=== PATIENT | female | born 1990 | race Caucasian/White ===

== ENCOUNTER → 2016-04-02 | Outpatient (CLI) | payer OTHER ==
[~2016-04-02] MED LIST: ANUS2.5C2 TOP; COLA100C PO; IBUP-1114 PO; MOM30SS PO; VITAPRTA PO; ZANTTAB PO
--- NOTE | 2016-04-03 05:54 | REP ---
KUB, TWO VIEWS: HISTORY: Abdominal pain. A small amount of air is present in small and large intestine. There are no air fluid levels or dilated loops of intestine. There is no pneumoperitoneum. An IUD is present in the pelvis. IMPRESSION: Nonspecific bowel gas pattern. Signed by Ricardo Rodrigues MD 04/03/2016 08:07 A
== END ==
LOC: M LRY 19:44
PROVIDERS: ATTEND Nurse Practitioner Family
DX: R10.30 Lower abdominal pain, unspecified (principal); Z97.5 Presence of (intrauterine) contraceptive device

== ENCOUNTER 2016-06-27 19:02 | Emergency (ER) | payer OTHER ==
[~2016-06-27] VITALS: Ht 167.6 cm; Wt 90.7 kg
[~2016-06-27 19:02] MED LIST changes: -COLA100C PO; +COLA100C3 PO
[2016-06-27] MEDS ORDERED: ALBU17IN2 INH (19:19)
[2016-06-27] MEDS ORDERED: TRAM1CAP15 PO (19:19)
[2016-06-27] MEDS ORDERED: predniSONE 20 MG TAB PO ONE (19:30)
[2016-06-27] MEDS ORDERED: AZITHROMYCIN 250 MG TAB PO ONE (19:30)
[2016-06-27] MEDS ORDERED: PRED10TA PO (19:35)
[2016-06-27] MEDS ORDERED: ZITHTAB PO (19:35)
[2016-06-27 20:56] VITALS: BP 146/88
== END 2016-06-27 20:58 | disposition home or self-care (01) ==
LOC: M ED 19:36
DX: J02.9 Acute pharyngitis, unspecified (principal); J03.91 Acute recurrent tonsillitis, unspecified; Z79.899 Other long term (current) drug therapy; Z88.8 Allergy status to other drugs, medicaments and biological substances; Z88.0 Allergy status to penicillin

== ENCOUNTER → 2016-06-30 | Outpatient (CLI) | payer OTHER ==
[~2016-06-30] MED LIST changes: +ALBU17IN2 INH; +PRED10TA PO; +TRAM1CAP15 PO; +ZITHTAB PO
--- NOTE | 2016-06-30 14:40 | REP ---
Clinical: Cough . Comparison: None . Technique: PA and lateral. Findings: The mediastinum and cardiac silhouette are normal. The lung ames are clear and without acute consolidation, effusion, or pneumothorax. The skeletal structures are intact and normal. Impression: 1. No acute cardiopulmonary process. 2. No focal consolidation. Signed by Edgar Moreland MD 06/30/2016 02:31 P
== END ==
LOC: M LRY 14:12
PROVIDERS: ATTEND Nurse Practitioner Family
DX: R05 Cough (principal)

== ENCOUNTER → 2016-08-27 | Outpatient (REF) | payer OTHER ==
[~2016-08-27] MED LIST changes: -COLA100C3 PO; +COLA100C5 PO; -PRED10TA PO; +PRED10TA2 PO; +XYZA5TAB4 PO
== END ==
LOC: M SFHCLERA 18:27
PROVIDERS: ATTEND Nurse Practitioner Family
DX: J02.9 Acute pharyngitis, unspecified (principal)

== ENCOUNTER 2016-09-16 10:13 | Day surgery (SDC) | payer OTHER ==
[~2016-09-16] VITALS: Ht 167.6 cm; Wt 93.0 kg
[2016-09-16] MEDS ORDERED: LIDOCAINE 1% SDV 5 ML VIAL SC ONE (10:30)
[2016-09-16] MEDS ORDERED: LR 1,000 ML IV SCH ×2 (10:30→16:45)
[2016-09-16 11:57] LABS: CONTROL LINE UCG INT CTR LINE PRESENT
[2016-09-16] MEDS ORDERED: BUPIVACAINE HCL 0.5% 30 ML VIAL As Ordered ONE (14:52)
[2016-09-16] MEDS ORDERED: LIDOCAINE 2% INJ 100 MG/5 ML SDV (FOR ANES.) As Ordered ONE (15:02)
[2016-09-16] MEDS ORDERED: METOCLOPRAMIDE INJ 10MG/2ML VIAL (J2765) As Ordered ONE (15:02)
[2016-09-16] MEDS ORDERED: MIDAZOLAM INJ 2 MG/2 ML VIAL (J2250) As Ordered ONE (15:02)
[2016-09-16] MEDS ORDERED: SUCCINYLCHOLINE 100 MG/5 ML SYRINGE (J0330) As Ordered ONE (15:02)
[2016-09-16] MEDS ORDERED: fentaNYL 100 MCG/2 ML INJECTION (J3010) As Ordered ONE (15:02)
[2016-09-16] MEDS ORDERED: PROPOFOL 200 MG/20 ML VIAL As Ordered ONE ×2 (15:02→15:48)
[2016-09-16] MEDS ORDERED: dexameTHASONE 4 MG/ML 1ML VIAL (J1100) As Ordered ONE (15:09)
[2016-09-16] MEDS ORDERED: ONDANSETRON 4MG/2ML VIAL (J2405) As Ordered ONE (16:29)
[2016-09-16] MEDS ORDERED: HYDROmorphone HCL 1 MG/ML SYRINGE (J1170) As Ordered ONE (16:30)
[2016-09-16] MEDS: HYDROmorphone HCL 1 MG/ML SYRINGE (J1170) IV PRN ×2 (16:35→16:40)
[2016-09-16] MEDS ORDERED: ONDANSETRON 4 MG TAB (S0181) PO PRN (16:45)
[2016-09-16] MEDS ORDERED: oxyCODONE 5MG TAB PO PRN (16:45)
[2016-09-16] MEDS ORDERED: fentaNYL 100 MCG/2 ML INJECTION (J3010) IV PRN (16:45)
[2016-09-16] MEDS ORDERED: ONDANSETRON 4MG/2ML VIAL (J2405) IV PRN (16:45)
[2016-09-16] MEDS ORDERED: IBUPROFEN 800 MG TAB PO PRN (16:45)
[2016-09-16] MEDS ORDERED: IBUPROFEN 100 MG/5 ML SUSP UDC DYE FREE As Ordered ONE (17:40)
[2016-09-16 19:40] VITALS: BP 133/87
--- NOTE | 2016-09-20 09:37 | RO ---
DATE OF PROCEDURE: 09/16/2016 PREOPERATIVE DIAGNOSIS: Chronic tonsillitis. POSTOPERATIVE DIAGNOSIS: Chronic tonsillitis. PROCEDURE: Tonsillectomy. SURGEON: Kevin Mayo MD [employer]: ANESTHESIA: General endotracheal. INDICATIONS: This 25-year-old presents with a long history of tonsillitis, pharyngitis and tonsil stone formation. This has gone on for many years. DESCRIPTION OF PROCEDURE: Satisfactory general endotracheal anesthesia was administered. The patient was placed in Trendelenburg position and a Eli-Tanvir gag inserted. The right tonsil was grasped with an Allis clamp and retracted out of its fossa. There was marked inflammatory changes noted over the tonsil surface as well as hypertrophic crypts and lack of a clearly defined tonsil capsule. Incision was made on the anterior pillar 3 mm from its edge. The capsule of the tonsil was identified and with a combination of cautery and blunt dissection, the tonsil was rolled medially out of its muscular fossa, working superiorly to inferiorly. The posterior constrictor was preserved in its entirety. During the dissection superiorly, a plexus of veins was exposed with significant bleeding from them. A tonsil clamp was simply placed on the area of bleeding, which controlled the bleeding. Then, this area was oversewn with a #4-0 Vicryl [id number] suture times two. This controlled the bleeding. The completion of the tonsillectomy was done with the cautery and once the tonsil was suspended along with the inferior pole, coagulation current was used to amputate tissue. The left tonsil was removed in a similar fashion. Again, an identical mirror image pharyngeal vessel was encountered and dissection through the constrictor. This was clamped, then doubly oversewn using a #4-0 Vicryl [id number] suture. Once the tonsils were both removed, inspection of the tonsil fossa showed no active bleeding, 0.5% Marcaine was injected into the surgical site. The gag was released at 3 minutes, re-inspection showed no active bleeding. The patient was then awakened, extubated, and sent to recovery in satisfactory condition. She will be discharged home on oxycodone 5 mg every 4 hours since she is allergic to Tylenol. She will also have Motrin 800 mg three times a day. She will be seen back in the office in 1 week.
== END 2016-09-16 17:18 | disposition home or self-care (01) ==
LOC: M SDC 10:13
PROVIDERS: ATTEND Specialist
DX: J35.01 Chronic tonsillitis (principal); J45.909 Unspecified asthma, uncomplicated; Z79.51 Long term (current) use of inhaled steroids; Z79.899 Other long term (current) drug therapy; Z88.0 Allergy status to penicillin; Z88.8 Allergy status to other drugs, medicaments and biological substances
CPT/HCPCS: 42826; 84703; 88302; J1100; J1170; J2250; J2405; J2765; J3010

== ENCOUNTER 2017-02-26 20:34 | Emergency (ER) | payer OTHER ==
[2017-02-26 22:45] LABS: BASO % 0.3 % (0.0-1.0); EOS # 0.2 10^3/uL (0.0-0.50); EOS % 2.2 % (0.0-3.0); HEMATOCRIT 39.7 % (36.0-47.0); HEMOGLOBIN 13.4 g/dl (12.0-16.0); IMMATURE GRANULOCYTE % 0.3 % (0-0); LYMPH # 3.2 10^3/uL (1.5-6.5); LYMPH % 32.1 % (24.0-44.0); MEAN CORPUSCULAR HEMOGLOBIN 28.8 pg (27.0-33.0); MEAN CORPUSCULAR HGB CONC 33.8 g/dl (32.0-36.5); MEAN CORPUSCULAR VOLUME 85.4 fl (80.0-96.0); MONO # 0.7 10^3/uL (0.0-0.8); MONO % 6.7 % (0.0-5.0); NEUTROPHILS # 5.9 10^3/uL (1.8-7.7); NEUTROPHILS % 58.4 % (36.0-66.0); PLATELET COUNT, AUTOMATED 295 10^3/uL (150-450); RED BLOOD COUNT 4.65 10^6/uL (4.00-5.40); RED CELL DISTRIBUTION WIDTH 12.3 % (11.5-14.5); WHITE BLOOD COUNT 10.1 10^3/uL (4.0-10.0)
[2017-02-26 22:47] LABS: KETONE, URINE AUTO RFX NEGATIVE (NEGATIVE); LEUKOCYTE ESTERASE UR AUTO RFX NEGATIVE (NEGATIVE); MUCUS, URINE RFX SMALL (NEGATIVE); NITRITE, URINE AUTO RFX NEGATIVE (NEGATIVE); RBC, URINE AUTO RFX 3 /HPF (0-3); SPECIFIC GRAVITY UR AUTO RFX 1.031 (1.002-1.035); SQUAM EPITHELIAL CELL UR AURFX 2 /HPF (0-6); WBC, URINE AUTO RFX 1 /HPF (0-3)
[2017-02-26] MEDS: ONDANSETRON 4MG/2ML VIAL (J2405) IV (22:53)
[2017-02-26] MEDS: NS 1,000 ML IV (22:53)
[2017-02-26] MEDS: MORPHINE 4 MG/ML 1ML SYRINGE IV (22:54)
[2017-02-26 23:09] LABS: CONTROL LINE HCG INT CTR LINE PRESENT; HCG, SERUM QUALITATIVE NEGATIVE (NEGATIVE)
[2017-02-26 23:11] LABS: ALBUMIN 4.2 GM/DL (3.2-5.2); ALBUMIN/GLOBULIN RATIO 1.24 (1.00-1.93); ALKALINE PHOSPHATASE 94 U/L (45-117); ALT/SGPT 57 U/L (12-78); ANION GAP 7 MEQ/L (8-16); AST/SGOT 23 U/L (7-37); BILIRUBIN,DIRECT < 0.1 MG/DL (0.0-0.2); BILIRUBIN,TOTAL 0.2 MG/DL (0.2-1.0); BLOOD UREA NITROGEN 18 MG/DL (7-18); CALCIUM LEVEL 9.5 MG/DL (8.5-10.1); CARBON DIOXIDE LEVEL 28 MEQ/L (21-32); CHLORIDE LEVEL 104 MEQ/L (98-107); CREATININE FOR GFR 0.77 MG/DL (0.55-1.02); GLOMERULAR FILTRATION RATE > 60.0 (>60); GLUCOSE, FASTING 102 MG/DL (70-105); LIPASE 129 U/L (73-393); SODIUM LEVEL 139 MEQ/L (136-145); TOTAL PROTEIN 7.6 GM/DL (6.4-8.2)
[2017-02-27 02:27] LABS: CHLAMYDIA DNA AMPLIFICATION NEGATIVE (NEGATIVE); GC DNA AMPLIFICATION NEGATIVE (NEGATIVE)
== END 2017-02-27 02:29 | disposition home or self-care (01) ==
LOC: M ED 02-27 02:29
DX: R10.9 Unspecified abdominal pain (principal); Z97.5 Presence of (intrauterine) contraceptive device; Z88.6 Allergy status to analgesic agent; Z88.0 Allergy status to penicillin
CPT/HCPCS: J2405

== ENCOUNTER → 2017-02-26 | Outpatient (CLI) | payer OTHER | LOC: M RAD 14:46 | DX: J01.30 Acute sphenoidal sinusitis, unspecified (principal) | CPT/HCPCS: 70486 ==